=== PATIENT | male | born 1945 | race Two or more races ===

== ENCOUNTER 2016-04-05 08:26 | Outpatient (CLI) | payer MEDICARE, BC ==
[2016-04-05] MEDS ORDERED: REGADENOSON 0.4 MG/5 ML DISP.SYRIN IVP ONE (09:30)
== END 2016-04-05 23:59 | disposition home or self-care (01) ==
LOC: RAD 08:26
PROVIDERS: ATTEND Internal Medicine Interventional Cardiology
DX: I25.10 Atherosclerotic heart disease of native coronary artery without angina pectoris (principal); Z95.5 Presence of coronary angioplasty implant and graft
CPT/HCPCS: 78452; A9502; J2785

== ENCOUNTER 2018-08-05 10:00 | Outpatient (CLI) | payer MEDICARE, BC ==
[~2018-08-05] VITALS: Ht 175.3 cm; Wt 88.5 kg
[2018-08-05 09:41] LABS: CALCIUM, SERUM 8.8 mg/dL (8.5-10.1); CREATININE 1.1 mg/dL (0.6-1.3); POTASSIUM 4.9 mmol/L (3.5-5.1)
[~2018-08-05 10:00] MED LIST: CT SWABBABLE VALVE TRANS SET 1 EA INFUS.SET MC ONE; IOHEXOL-350 100 ML VIAL IV ONE; IV NS 0.9% 250 ML IV ONE
[2018-08-05] MEDS ORDERED: METOPROLOL TARTRATE INJ 5 MG/5 ML AMPUL ONE ×2 (10:23→10:45)
[2018-08-05] MEDS ORDERED: IV NS 0.9% 500 ML IV ONE (11:00)
[2018-08-05] MEDS ORDERED: METOPROLOL TARTRATE INJ 5 MG/5 ML AMPUL IVP ONE (11:00)
[2018-08-05] MEDS ORDERED: NITROGLYCERIN 0.4 MG/TAB BOTTLE SL ONE (11:30)
== END 2018-08-05 23:59 | disposition home or self-care (01) ==
LOC: CT 10:00
PROVIDERS: ATTEND Internal Medicine Interventional Cardiology
DX: I25.10 Atherosclerotic heart disease of native coronary artery without angina pectoris (principal); M47.814 Spondylosis without myelopathy or radiculopathy, thoracic region; I10 Essential (primary) hypertension
CPT/HCPCS: 36415; 75574; 80048; J3490 ×2; J7050; Q9967

== ENCOUNTER → 2019-05-21 | Day surgery (SDC) | payer MEDICARE, BC ==
[~2019-05-21] VITALS: Ht 172.7 cm; Wt 89.4 kg
[~2019-05-21] MED LIST changes: -CT SWABBABLE VALVE TRANS SET 1 EA INFUS.SET MC ONE; +IV NS 0.9% 500 ML IV PRN; +METOPROLOL TARTRATE INJ 5 MG/5 ML AMPUL ONE; +NITROGLYCERIN 0.4 MG/TAB BOTTLE ONE; +NITROGLYCERIN 0.4 MG/TAB BOTTLE SL ONE; +REGADENOSON 0.4 MG/5 ML DISP.SYRIN IVP ONE
[2019-05-21 09:39] LABS: CALCIUM, SERUM 8.3 mg/dL (8.5-10.1); POTASSIUM 4.9 mmol/L (3.5-5.1)
[2019-05-21] MEDS: METOPROLOL TARTRATE INJ 5 MG/5 ML AMPUL IVP PRN ×2 (10:03→10:11)
--- NOTE | 2019-05-21 10:20 | NUR ---
Pt awake alert oriented CTA completed vital sign stable pt to 3rd part of lexiscan
[2019-05-21 11:08] VITALS: BP 135/78
--- NOTE | 2019-05-21 11:08 | NUR ---
RN NOTE THE PATIENT IS WALKED IN TO THE UNIT WITH A STAFF. THE PATIENT IS DIRECTED TO HIS ROOM. THE PATIENT IS ALERT AND ORIENTED X4. IN ROOM AIR AND DENIES SOB. RESPIRATION REGULAR AND UNLABORED. DENIES PAIN. THE PATIENT IN NO APPARENT DISTRESS. VITAL SIGNS ARE TAKEN. WILL CONTINUE TO MONITOR.
[2019-05-21 11:20] VITALS: BP 117/76
[2019-05-21 11:30] VITALS: BP 124/64
--- NOTE | 2019-05-21 11:30 | NUR ---
RN NOTES THE PATIENT`S VITALS SIGNS STABLE. THE PATIENT DENIES SOB. IN ROOM AIR AND SATURATION IS AT 99%. RESPIRATION REGULAR AND UNLABORED. DENIES PAIN. THE PATIENT IS IN NO APPARENT DISTRESS. PATIENT IS ALERT AND ORIENTED X4. THE PATIENT LEFT THE HOSPITAL IN STABLE CONDITION.
== END | disposition home or self-care (01) ==
LOC: CT 07:14 → EDSTATUS 08:00
PROVIDERS: ATTEND Internal Medicine Interventional Cardiology
DX: I10 Essential (primary) hypertension (principal); I25.10 Atherosclerotic heart disease of native coronary artery without angina pectoris; M47.814 Spondylosis without myelopathy or radiculopathy, thoracic region
CPT/HCPCS: 36415; 75574; 78452; 80048; A9502; J2785; J3490; J7050; Q9967

== ENCOUNTER 2020-01-12 07:29 | Inpatient (IN) | payer MEDICARE, BC ==
[2020-01-12] VITALS (42 sets, daily range): BP systolic 116–176; BP diastolic 45–96
[~2020-01-12] VITALS: Ht 172.7 cm; Wt 93.0 kg
[~2020-01-12 07:29] MED LIST changes: +IODIXANOL 150 ML IV ONE; -IOHEXOL-350 100 ML VIAL IV ONE; -IV NS 0.9% 250 ML IV ONE; -IV NS 0.9% 500 ML IV PRN; +LIDOCAINE HCL/PF 1% 30 ML SDV ONE; -METOPROLOL TARTRATE INJ 5 MG/5 ML AMPUL ONE; -NITROGLYCERIN 0.4 MG/TAB BOTTLE ONE; -NITROGLYCERIN 0.4 MG/TAB BOTTLE SL ONE; +NITROGLYCERIN ICAR 1,000 MCG/10 ML VIAL ICAR ONE; -REGADENOSON 0.4 MG/5 ML DISP.SYRIN IVP ONE
[2020-01-12] MEDS ORDERED: IV NS 0.9% 1,000 ML IV ONE ×2 (07:30→12:00)
[2020-01-12] MEDS ORDERED: IV SET PRIMARY PUMP SET 1 EA INFUS.SET MC ONE (07:32)
[2020-01-12] MEDS ORDERED: IV NS 0.9% 1,000 ML ONE (07:32)
[2020-01-12] MEDS ORDERED: MIDAZOLAM HCL 2 MG/2ML VIAL ONE ×2 (07:39→09:27)
[2020-01-12] MEDS ORDERED: FENTANYL PF 100MCG/2ML AMPUL ONE (07:39)
[2020-01-12] MEDS ORDERED: HEPARIN SODIUM, PORCINE 1,000 UNIT/ML VIAL ONE (07:40)
[2020-01-12 07:56] LABS: BASOPHILS % (AUTO) 0.9 % (0.0-2.0); EOSINOPHILS % (AUTO) 3.8 % (0.0-6.0); HEMATOCRIT 39 % (39-51); HEMOGLOBIN 12.9 g/dL (13.5-17.5); LYMPHOCYTES % (AUTO) 21.3 % (20.0-44.0); MEAN CORPUSCULAR HGB CONC 33 g/dl (31.0-36.0); MEAN CORPUSCULAR VOLUME 92 fL (80-96); MONOCYTES # (AUTO) 0.4 /CMM (0.1-1.30); MONOCYTES % (AUTO) 8.8 % (2.0-12.0); NEUTROPHILS # (AUTO) 3.2 /CMM (1.8-8.9); NEUTROPHILS % (AUTO) 65.2 % (43.0-81.0); PLATELET COUNT (AUTO) 196 /CMM (150-450); RED BLOOD CELL COUNT(AUTO) 4.28 MIL/uL (4.5-6.0); WHITE BLOOD COUNT (AUTO) 4.9 K/uL (4.3-11.0)
[2020-01-12] MEDS ORDERED: ASPI-992 PO (08:08)
[2020-01-12] MEDS ORDERED: TERA2CAP4 PO (08:08)
[2020-01-12] MEDS ORDERED: CARV12.5 PO (08:08)
[2020-01-12] MEDS ORDERED: ATOR20TA PO (08:08)
[2020-01-12] MEDS ORDERED: FINA5TAB4 PO (08:08)
[2020-01-12] MEDS ORDERED: LISI-603 PO (08:09)
[2020-01-12 08:24] LABS: ALBUMIN 3.4 g/dL (3.4-5.0); BILIRUBIN,TOTAL 0.6 mg/dL (0.2-1.0); CALCIUM, SERUM 8.4 mg/dL (8.5-10.1); CREATININE 1.1 mg/dL (0.6-1.3); POTASSIUM 4.7 mmol/L (3.5-5.1); TOTAL PROTEIN, SERUM 7.1 g/dL (6.4-8.2)
[2020-01-12] MEDS ORDERED: HEPARIN SODIUM, PORCINE 5000 UNITS/1 ML VIAL ONE (09:25)
[2020-01-12] MEDS ORDERED: IODIXANOL 320MG/ML 50 ML IV ONE ×2 (09:26→10:12)
[2020-01-12] MEDS ORDERED: NITROGLYCERIN ICAR 1,000 MCG/10 ML VIAL ICAR ONE (09:31)
[2020-01-12] MEDS ORDERED: TICAGRELOR 90 MG TABLET PO ONE (09:51)
[2020-01-12] MEDS ORDERED: ASPIRIN 81 MG TAB.CHEW ONE (10:07)
[2020-01-12] MEDS ORDERED: NICARDIPINE HCL 25 MG/10 ML VIAL IV ONE (10:10)
[2020-01-12] MEDS ORDERED: IV NS 0.9% 1,000 ML IV PRN (12:00)
--- NOTE | 2020-01-12 12:45 | NUR ---
3ML REMOVED FROM TR BAND, NO BLEEDING NOTED. WILL CONTINUE TO MONITOR.
--- NOTE | 2020-01-12 12:47 | NUR ---
CONTACTED DR LEONARD FOR ADMITTING ORDERS
--- NOTE | 2020-01-12 13:00 | NUR ---
3ML OF AIR REMOVED FROM TR BAND. NO SIGNS OF BLEEDING NOTED. PULSE AND EXTREMITY CHECKED. WILL CONTINUE TO MONITOR PATIENT.
--- NOTE | 2020-01-12 13:32 | NUR ---
PATIENT'S FIRST URINE OUTPUT WAS STRAW COLORED, NOW HEMATURIA NOTED, INFORMED DR LEONARD, WILL CONTINUE TO MONITOR URINE.
--- NOTE | 2020-01-12 14:00 | NUR ---
2 ML OF AIR REMOVED FROM TR BAND. NO SIGNS OF BLEEDING NOTED. WILL CONTINUE TO MONITOR PATIENT.
[2020-01-12] MEDS ORDERED: ZOLPIDEM TARTRATE 5 MG TABLET PO PRN (14:30)
[2020-01-12] MEDS ORDERED: ACETAMINOPHEN 325 MG TABLET PO PRN (14:30)
[2020-01-12] MEDS ORDERED: HYDROCODONE/APAP 5/325MG TABLET PO PRN (14:30)
[2020-01-12] MEDS ORDERED: MAGNESIUM HYDROXIDE 30 ML UDC PO PRN (14:30)
[2020-01-12] MEDS ORDERED: MAG HYDROX/AL HYDROX/SIMETH 30 ML UDC PO PRN (14:30)
[2020-01-12] MEDS ORDERED: ONDANSETRON HCL/PF 4 MG/2 ML VIAL IVP PRN (14:30)
[2020-01-12] MEDS ORDERED: Z GUARD REMEDY 2 OZ OINT TP PRN (14:30)
--- NOTE | 2020-01-12 16:49 | NUR ---
TR BAND REMOVED, APPLIED TEGADERM OVER SITE. CHECKED PULSE AND EXTREMITY. NO SIGNS OF COMPLICATIONS NOTED. WILL CONTINUE TO MONITOR FOR CHANGES.
[2020-01-12] MEDS ORDERED: CARVEDILOL 12.5 MG TABLET PO SCH (17:00)
[2020-01-12] MEDS ORDERED: TICAGRELOR 90 MG TABLET PO SCH (17:00)
[2020-01-12] MEDS: TICAGRELOR 90 MG TABLET PO SCH (17:08)
--- NOTE | 2020-01-12 18:51 | NUR ---
RN CLOSING NOTE: PATIENT REMAINS IN ROOM. NO SIGNS OF ACUTE DISTRESS NOTED AT THIS TIME. SR IN 60S WITH ELEVATED T WAVES NOTED ON THE MONITOR. SAFETY MEASURES IMPLEMENTED, BED IN LOWEST POSITION, LOCKED, SIDE RAILS UP, CALL LIGHT WITHIN REACH. WILL ENDORSE TO ONCOMING SHIFT RN FOR CONTINUITY OF CARE.
--- NOTE | 2020-01-12 18:52 | NUR ---
PATIENT ONLY HAD 1 EPISODE OF HEMATURIA. THE NEXT 3 UO WERE YELLOW/TEA COLORED WITH NO BLOOD NOTED.
--- NOTE | 2020-01-12 19:19 | NUR ---
RN NOTE RECEIVED PT AWAKE AND ALERT/ORIENTED X 4 IN BED. IN SEMI SOTELO'S POSITION. ON ROOM AIR, RESPIRATIONS EVEN AND UNLABORED, DENIES PAIN OR DISCOMFORT. ALL LINES FLUSHED AND INTACT. POST OPERATIVE SITES INTACT WITHOUT SIGNS OF BLEEDING OR COMPLICATIONS. VITAL SIGNS STABLE VIA BEDSIDE MONITOR. SR ON THE CUSTOMS OPENER VERIFIER PACKER. CALL LIGHT WITHIN REACH, SAFETY MEASURES IN PLACE, WILL MONITOR PATIENT.
--- NOTE | 2020-01-12 20:00 | NUR ---
RN NOTE PT HAD 300ML OF URINE OUTPUT VIA URINAL . URINE IS CLEAR YELLOW. NO HEMATURIA NOTED.
[2020-01-12] MEDS: CARVEDILOL 12.5 MG TABLET PO SCH (20:16)
--- NOTE | 2020-01-12 20:27 | NUR ---
RN NOTE NOTED O2 SATURATION AT 88%. RESPIRATIONS EVEN AND UNLABORED. PATIENT DENIES SHORTNESS OF BREATH. PLACED PT ON O2 VIA NC @ 2LPM WITH O2 SATURATION INCREASING TO 94%.
[2020-01-12] MEDS ORDERED: ATORVASTATIN 10 MG TABLET PO SCH ×2 (22:00)
[2020-01-12] MEDS ORDERED: TERAZOSIN HCL 5 MG CAPSULE PO SCH (22:00)
[2020-01-13] VITALS (12 sets, daily range): BP systolic 110–151; BP diastolic 63–105
--- NOTE | 2020-01-13 04:00 | NUR ---
RN NOTE PT AWAKE IN BED. GOOD URINE OUTPUT NOTED VIA URINAL. NO HEMATURIA NOTED. PT REFUSED BED BATH BUT AGREED FOR PARTIAL LINEN AND GOWN CHANGE, VITAL SIGNS STABLE VIA BEDSIDE MONITOR. DENIES PAIN OR DISCOMFORT. WILL CONTINUE TO MONITOR.
[2020-01-13 04:46] LABS: BASOPHILS % (AUTO) 0.6 % (0.0-2.0); EOSINOPHILS % (AUTO) 3.1 % (0.0-6.0); HEMATOCRIT 38 % (39-51); HEMOGLOBIN 12.6 g/dL (13.5-17.5); LYMPHOCYTES # (AUTO) 0.9 /CMM (0.8-4.8); LYMPHOCYTES % (AUTO) 16.7 % (20.0-44.0); MEAN CORPUSCULAR HGB CONC 33 g/dl (31.0-36.0); MEAN CORPUSCULAR VOLUME 91 fL (80-96); MONOCYTES # (AUTO) 0.5 /CMM (0.1-1.30); MONOCYTES % (AUTO) 9.5 % (2.0-12.0); NEUTROPHILS # (AUTO) 3.8 /CMM (1.8-8.9); NEUTROPHILS % (AUTO) 70.1 % (43.0-81.0); PLATELET COUNT (AUTO) 183 /CMM (150-450); RED BLOOD CELL COUNT(AUTO) 4.14 MIL/uL (4.5-6.0); WHITE BLOOD COUNT (AUTO) 5.4 K/uL (4.3-11.0)
[2020-01-13 04:54] LABS: CALCIUM, SERUM 8.4 mg/dL (8.5-10.1); MAGNESIUM 2.2 mg/dL (1.8-2.4); PHOSPHORUS 4.1 mg/dL (2.5-4.9); POTASSIUM 4.7 mmol/L (3.5-5.1)
[2020-01-13 05:07] LABS: THYROID STIMULATING HORMONE 2.628 uIU/mL (0.358-3.74)
--- NOTE | 2020-01-13 06:47 | NUR ---
RN NOTE PT IS AWAKE AND ALERT IN BED IN SEMI SOTELO'S POSITION. PT ON 2LPM OF O2 VIA NC AND TOLERATING WELL. RESPIRATIONS EVEN AND UNLABORED. DENIES PAIN OR DISCOMFORT. IV ON LEFT AC FLUSHED WITHOUT SIGNS OF COMPLICATIONS AT SITE. VITAL SIGNS STABLE ON THE BEDSIDE MONITOR. SR ON THE SURGICAL GARMENT INSPECTOR. ALL NEEDS MET AND ATTENDED TO, CALL LIGHT WITHIN REACH, SAFETY MEASURES IN PLACE, WILL ENDORSE TO MORNING RN FOR CONTINUATION OF CARE.
--- NOTE | 2020-01-13 07:30 | NUR ---
RECEIVED PATIENT IN BED THIS MORNING. PATIENT IS AAOX4, RESPONDS APPROPRIATELY. NO SIGNS OF ACUTE DISTRESS NOTED. SATING WELL ON ROOM AIR, OXYGEN AVAILABLE FOR COMFORT. SINUS JASON IN 50S NOTED ON THE CHOCOLATE PRODUCTION MACHINE OPERATOR. #18 ON LAC, FLUSHING WELL, C/D/I, NO SIGNS OF COMPLICATIONS NOTED. SAFETY MEASURES IMPLEMENTED, BED IN LOWEST POSITION, LOCKED, SIDE RAILS UP, CALL LIGHT WITHIN REACH. WILL CONTINUE TO MONITOR PATIENT FOR CHANGES.
[2020-01-13] MEDS: TICAGRELOR 90 MG TABLET PO SCH (08:06)
[2020-01-13] MEDS: CARVEDILOL 12.5 MG TABLET PO SCH (08:07)
[2020-01-13] MEDS ORDERED: FINASTERIDE (5 MG) 5 MG TABLET PO SCH ×2 (09:00)
[2020-01-13] MEDS ORDERED: LISINOPRIL (5MG) 5 MG TABLET PO SCH ×2 (09:00)
[2020-01-13] MEDS ORDERED: TERAZOSIN HCL 5 MG CAPSULE PO SCH (09:00)
[2020-01-13] MEDS ORDERED: ASPIRIN 81 MG TAB.CHEW PO SCH ×2 (09:00)
--- NOTE | 2020-01-13 10:35 | NUR ---
TF HELD FOR PATIENT D/T ABDOMINAL DISTENTION AROUND GT SITE. AWAITING KUB.
--- NOTE | 2020-01-13 11:15 | NUR ---
SEMIAUTOMATIC TAPER OPERATOR NOTE: PATIENT DC HOME. NO SIGNS OF ACUTE DISTRESS NOTED AT TIME OF DISCHARGE. VSS. PATIENT IS AAOX4, RESPONDS APPROPRIATELY. DC PAPERWORK SIGNED, PAPERWORK INCLUDING STENT CARD GIVEN TO PATIENT. BELONGINGS SENT WITH PATIENT AND FORM SIGNED. EDUCATED ON DC INSTRUCTIONS. PRESCRIPTION SENT. PATIENT LEFT ICU ON WC, PICKED PATIENT UP. Addendum: 01/13/20 at 1145 by TATYANA CORONADO RN IV REMOVED
== END 2020-01-13 11:40 | disposition home or self-care (01) | DRG 247 ==
LOC: DS 07:29 → ICU 11:02 → EDSTATUS 16:58
PROC: 4A023N7 Measurement of Cardiac Sampling and Pressure, Left Heart, Percutaneous Approach (ICD-10-PCS; principal; 2020-01-12)
PROC: 027034Z Dilation of Coronary Artery, One Artery with Drug-eluting Intraluminal Device, Percutaneous Approach (ICD-10-PCS; 2020-01-12)
PROC: B211YZZ Fluoroscopy of Multiple Coronary Arteries using Other Contrast (ICD-10-PCS; 2020-01-12)
PROC: B41FYZZ Fluoroscopy of Right Lower Extremity Arteries using Other Contrast (ICD-10-PCS; 2020-01-12)
PROC: 02703ZZ Dilation of Coronary Artery, One Artery, Percutaneous Approach (ICD-10-PCS; 2020-01-12)
DX: I25.10 Atherosclerotic heart disease of native coronary artery without angina pectoris (principal); I10 Essential (primary) hypertension; E11.9 Type 2 diabetes mellitus without complications; E78.5 Hyperlipidemia, unspecified; I25.118 Atherosclerotic heart disease of native coronary artery with other forms of angina pectoris; N40.0 Benign prostatic hyperplasia without lower urinary tract symptoms
CPT/HCPCS: 36415; 80048-TC; 80053-TC; 80061-TC; 83735-TC; 84100-TC; 84443-TC; 85025-TC; 85610-TC; 87081-TC; 92980; 92982; C1725; C1753; C1769; C9803; G0378; J1644; J2250; J3010; J3490; J7050; Q9967